=== PATIENT | female | born 1930 | race Caucasian/White ===

== ENCOUNTER 2018-10-19 13:59 | Inpatient (IN) | payer MEDICARE, OTHER ==
[~2018-10-19] VITALS: Ht 162.6 cm; Wt 64.4 kg
--- NOTE | 2018-10-19 14:13 | NUR ---
PT AMULATORY TO ROOM. DIZZINESS WITH RAPID HEART RATE AT 160 THIS MORNING PER SISTER IN LAW. WHO IS AN RN. NAUSEA YESTERDAY WITH VOMITING, PULSE IRREGULAR AT THAT TIME. MD AT BEDSIDE. NADN. TACHYCARDIA- 101 PULSE. CALL LIGHT IN REACH.
[2018-10-19] MEDS ORDERED: LISI30TA4 PO (14:19)
[2018-10-19] MEDS ORDERED: ASPIRIN 81 MG TABLET CHEW ONE (14:34)
[2018-10-19] MEDS ORDERED: SODIUM CHLORIDE FLUSH 10ML SYR IVF ONE (15:00)
[2018-10-19] MEDS ORDERED: ASPIRIN 81 MG TABLET CHEW PO ONE (15:00)
[2018-10-19 15:06] LABS: BASOPHILS # (AUTO) 0.02 x10^3/uL (0-0.1); BASOPHILS % (AUTO) 1 % (0-1); EOSINOPHILS # (AUTO) 0.12 x10^3/uL (0-0.4); EOSINOPHILS % (AUTO) 3 % (1-7); LYMPHOCYTES # (AUTO) 0.79 x10^3/uL (1-3.4); LYMPHOCYTES % (AUTO) 17 % (22-44); MD NO; MEAN CORPUSCULAR HEMOGLOBIN 28.2 pg (27.0-34.8); MEAN CORPUSCULAR HGB CONC 32.9 g/dL (32.4-35.8); MEAN CORPUSCULAR VOLUME 85.6 fL (80-100); MEAN PLATELET VOLUME 9.3 fL (7.4-10.4); MONOCYTES # (AUTO) 0.36 x10^3/uL (0.2-0.8); MONOCYTES % (AUTO) 8 % (2-9); NEUTROPHILS # (AUTO) 3.29 x10^3/uL (1.8-6.8); NEUTROPHILS % (AUTO) 72 % (42-75); PLATELET COUNT 173 x10^3/uL (130-400); RED CELL DISTRIBUTION WIDTH 14.8 % (9.6-15.2)
[2018-10-19 15:12] LABS: ALBUMIN 3.4 g/dL (3.4-5.0); ANION GAP 4 mmol/L (5-15); CALCIUM 8.8 mg/dL (8.5-10.1); CHLORIDE 108 mmol/L (98-107); CREATININE 1.11 mg/dL (0.55-1.02)
[2018-10-19 15:16] LABS: FREE T4 (FREE THYROXINE) 1.08 ng/dL (0.76-1.46); TROPONIN I 0.254 ng/mL (0.000-0.045)
[2018-10-19 15:22] LABS: THYROID STIMULATING HORMONE 0.943 mIU/L (0.358-3.740)
--- NOTE | 2018-10-19 16:17 | NUR ---
PT RESTING ON NANDINI. KATE. CALL LIGHT IN REACH. DENIES NEEDS. EKG DONE PER MD ORDER.
[2018-10-19] MEDS ORDERED: ACETAMINOPHEN 325 MG TABLET PO PRN (17:00)
--- NOTE | 2018-10-19 17:03 | NUR ---
REPORT GIVEN TO BHUMI VITALE ON TELE.
[2018-10-19 17:14] VITALS: BP 130/75
[2018-10-19] MEDS ORDERED: ENOXAPARIN 40 MG/0.4 ML SQ SCH (17:30)
[2018-10-19 19:58] VITALS: BP 133/76
[2018-10-19 22:54] LABS: TROPONIN I 0.226 ng/mL (0.000-0.045)
[2018-10-20 01:36] VITALS: BP 104/67
[2018-10-20 05:42] LABS: CALCIUM 8.3 mg/dL (8.5-10.1); CHLORIDE 110 mmol/L (98-107)
[2018-10-20 05:50] LABS: ANION GAP 3 mmol/L (5-15); CREATININE 0.85 mg/dL (0.55-1.02); TROPONIN I 0.188 ng/mL (0.000-0.045)
[2018-10-20 07:15] VITALS: BP 108/64
[2018-10-20] MEDS ORDERED: REGADENOSON 0.4 MG/5 ML SYRINGE ONE (08:30)
[2018-10-20] MEDS: LISINOPRIL 10 MG TABLET PO SCH (08:40)
[2018-10-20] MEDS: HEPARIN 5,000 UNITS/ML, 1ML SQ SCH ×2 (08:40→16:19)
[2018-10-20 08:57] LABS: CHOL/HDL RATIO 4.9; LDL/HDL RATIO 2.9 (0.5-3.0)
[2018-10-20 13:25] VITALS: BP 144/79
[2018-10-20 18:29] VITALS: BP 142/84
[2018-10-20] MEDS: METOPROLOL TARTRATE 25 MG TABLET PO SCH (18:32)
[2018-10-20 18:54] VITALS: BP 146/79
[2018-10-20] MEDS: ATORVASTATIN 40 MG TABLET PO SCH (21:08)
[2018-10-21] MEDS: HEPARIN 5,000 UNITS/ML, 1ML SQ SCH ×3 (00:32→16:30)
[2018-10-21 00:40] VITALS: BP 115/67
[2018-10-21 04:51] LABS: ANION GAP 7 mmol/L (5-15); CALCIUM 8.3 mg/dL (8.5-10.1); CHLORIDE 111 mmol/L (98-107); CREATININE 0.83 mg/dL (0.55-1.02)
[2018-10-21 05:42] VITALS: BP 128/67
[2018-10-21] MEDS: METOPROLOL TARTRATE 25 MG TABLET PO SCH ×2 (05:43→18:14)
[2018-10-21 07:01] VITALS: BP 118/70
[2018-10-21 07:31] LABS: CLOSTRIDIUM DIFFICILE ANTIGEN NEGATIVE; CLOSTRIDIUM DIFFICILE TOXIN NEGATIVE (Negative)
[2018-10-21] MEDS: LISINOPRIL 10 MG TABLET PO SCH (09:32)
[2018-10-21] MEDS: SODIUM CHLORIDE 0.9% 1,000 ML IV SCH ×4 (10:30→18:30)
[2018-10-21 12:33] VITALS: BP 131/71
[2018-10-21] MEDS ORDERED: NITROGLYCERIN 5 MG/ML, 10ML ONE (15:38)
[2018-10-21] MEDS ORDERED: FENTANYL PF 100 MCG/2ML ONE (15:38)
[2018-10-21] MEDS ORDERED: TICAGRELOR 90 MG TABLET ONE (15:38)
[2018-10-21] MEDS ORDERED: VERAPAMIL 2.5 MG/ML, 2ML ONE (15:38)
[2018-10-21] MEDS ORDERED: MIDAZOLAM 1 MG/ML, 2ML ONE (15:38)
[2018-10-21] MEDS ORDERED: ASPIRIN 325 MG TABLET EC ONE (15:38)
[2018-10-21] MEDS ORDERED: BIVALIRUDIN 250 MG ONE (15:38)
[2018-10-21] MEDS ORDERED: HEPARIN 1,000 UNITS/ML, 10ML ONE (15:59)
[2018-10-21] MEDS ORDERED: SODIUM CHLORIDE 0.9% 1,000 ML IV SCH (16:13)
[2018-10-21 18:13] VITALS: BP 153/92
[2018-10-21] MEDS ORDERED: ASPI325T17 PO (18:39)
[2018-10-21] MEDS ORDERED: ATOR40TA78 PO (18:39)
[2018-10-21] MEDS ORDERED: METO25TA35 PO (18:39)
[2018-10-21 21:10] VITALS: BP 132/82
[2018-10-21] MEDS: ATORVASTATIN 40 MG TABLET PO SCH (21:15)
[2018-10-22] MEDS ORDERED: ASPIRIN 325 MG TABLET PO SCH (06:00)
== END 2018-10-21 23:07 | disposition home or self-care (01) | DRG 286 ==
LOC: ED 15:35 → EDIP 15:41 → ED 15:48 → 5SO 17:03
PROVIDERS: ADMIT Internal Medicine; ATTEND Internal Medicine
PROC: 4A023N7 Measurement of Cardiac Sampling and Pressure, Left Heart, Percutaneous Approach (ICD-10-PCS; principal; 2018-10-21)
PROC: B2111ZZ Fluoroscopy of Multiple Coronary Arteries using Low Osmolar Contrast (ICD-10-PCS; 2018-10-21)
PROC: B2151ZZ Fluoroscopy of Left Heart using Low Osmolar Contrast (ICD-10-PCS; 2018-10-21)
DX: I25.10 Atherosclerotic heart disease of native coronary artery without angina pectoris (principal); I50.31 Acute diastolic (congestive) heart failure; I13.0 Hypertensive heart and chronic kidney disease with heart failure and stage 1 through stage 4 chronic kidney disease, or unspecified chronic kidney disease; I24.9 Acute ischemic heart disease, unspecified; I49.3 Ventricular premature depolarization; E78.5 Hyperlipidemia, unspecified; I48.91 Unspecified atrial fibrillation; N18.2 Chronic kidney disease, stage 2 (mild); Z82.49 Family history of ischemic heart disease and other diseases of the circulatory system; Z87.891 Personal history of nicotine dependence; Z90.5 Acquired absence of kidney; Z90.710 Acquired absence of both cervix and uterus
CPT/HCPCS: 36415; 71045; 78452; 80048; 80061; 82040; 83735; 83880; 84439; 84443; 84481; 84484; 85025; 87324; 93005; 93017; 93306; 93458; 93571; 99156; C1769; C1894; G0378; J0583; J1644; J1650; J2250; J2785; J3010; A9502; C9898; J7030; Q9967

== ENCOUNTER 2019-04-28 09:25 | Outpatient (CLI) | payer MEDICARE ==
[~2019-04-28 09:25] MED LIST: ASPI325T17 PO; ATOR40TA78 PO; LISI30TA4 PO; METO25TA35 PO
== END 2019-04-28 23:59 | disposition home or self-care (01) ==
LOC: CVU 09:25
PROVIDERS: ATTEND Internal Medicine Cardiovascular Disease
DX: I51.81 Takotsubo syndrome (principal)
CPT/HCPCS: 0399T; 93306

== ENCOUNTER 2020-06-10 13:01 | Emergency (ER) | payer MEDICARE ==
[~2020-06-10] VITALS: Ht 165.1 cm; Wt 63.5 kg
--- NOTE | 2020-06-10 13:54 | NUR ---
pt in bed. states that she had a "bm 3 days ago that had mucus and pink/ red in it. vss
[2020-06-10] MEDS ORDERED: SODIUM CHLORIDE FLUSH 10ML SYR IVF ONE (14:30)
[2020-06-10] MEDS ORDERED: SODIUM CHLORIDE 0.9% 1,000ML IVBOLUS ONE (14:30)
--- NOTE | 2020-06-10 14:58 | NUR ---
pt in bed. up to bathroom self
[2020-06-10 15:05] LABS: BASOPHILS % (AUTO) 1 % (0-1); EOSINOPHILS % (AUTO) 2 % (1-7); LYMPHOCYTES % (AUTO) 23 % (22-44); MEAN CORPUSCULAR HEMOGLOBIN 28.1 pg (27.0-34.8); MEAN CORPUSCULAR HGB CONC 33.5 g/dL (32.4-35.8); MEAN PLATELET VOLUME 9.1 fL (7.4-10.4); MONOCYTES % (AUTO) 8 % (2-9); NEUTROPHILS % (AUTO) 67 % (42-75); PLATELET COUNT 194 x10^3/uL (130-400); RED BLOOD COUNT 5.36 x10^6/uL (3.82-5.3); RED CELL DISTRIBUTION WIDTH 15.3 % (9.6-15.2)
[2020-06-10 15:11] LABS: MD NO
[2020-06-10 15:15] LABS: ALANINE AMINOTRANSFERASE 24 U/L (12-78); ALBUMIN 3.6 g/dL (3.4-5.0); ANION GAP 10 mmol/L (5-15); CHLORIDE 108 mmol/L (98-107); CREATININE 1.09 mg/dL (0.55-1.02)
[2020-06-10 15:20] LABS: ALKALINE PHOSPHATASE 109 U/L (45-117); BILIRUBIN,TOTAL 0.6 mg/dL (0.2-1.0); TOTAL PROTEIN 7.5 g/dL (6.4-8.2); TROPONIN I < 0.015 ng/mL (0.000-0.045)
[2020-06-10] MEDS ORDERED: OMNIPAQUE 350 MG/ML, 100ML BOTTLE ONE (15:56)
--- NOTE | 2020-06-10 16:00 | NUR ---
Yesica martinez in [facility] - 06/10/20 at 1611 by OFELIA med rec done.
--- NOTE | 2020-06-10 16:11 | NUR ---
pt back from [facility]
[2020-06-10 17:20] LABS: MICROSCOPIC AUTO
[2020-06-10 17:43] VITALS: BP 138/76
--- NOTE | 2020-06-10 17:50 | NUR ---
pt dc home walked out self. discuessed laxitives amd if s&s worsen return to the er
== END 2020-06-10 17:51 | disposition home or self-care (01) ==
LOC: ED 15:30
DX: K57.32 Diverticulitis of large intestine without perforation or abscess without bleeding (principal); R10.32 Left lower quadrant pain; R10.11 Right upper quadrant pain; K59.00 Constipation, unspecified; R50.9 Fever, unspecified; Z90.710 Acquired absence of both cervix and uterus
CPT/HCPCS: 36415; 74177; 80053; 81001; 83605; 83690; 84484; 85025; 87086; 96360; 96361; 99285; J7030; Q9967